=== PATIENT | male | born 1970 | race Caucasian/White ===

== ENCOUNTER 2020-01-19 16:42 | Emergency (ER) | payer MEDICARE, OTHER, SELFPAY ==
[2020-01-19 16:49] VITALS: BP 137/79; PULSE 75; RESP 16; TEMP 36.5; O2SAT 100
[2020-01-19 17:13] VITALS: RESP 16
--- NOTE | 2020-01-19 17:13 | ED.GENADUL_ITS ---
Discharge Plan Disposition Patient Disposition: HOME Condition: Stable Discharge Details Clinical Impression: Abscess of scrotum Primary Care Provider: [facility] [place] [facility] Provider: Woo Shukla Home Meds and New Rx's Prescriptions: New sulfamethoxazole-trimethoprim [Bactrim DS] 800-160 mg tablet 1 tab PO BID Qty: 14 RF: 0 cephalexin 500 mg tablet 500 mg PO QID Qty: 28 RF: 0 Continued divalproex [Depakote] 500 MG tablet,delayed release (DR/EC) 1,000 mg PO HS RF: 0 metoprolol tartrate 50 MG tablet 50 mg PO BID RF: 0 fexofenadine 60 MG tablet 1 tab PO PRN RF: 0 gabapentin 600 MG tablet 600 mg PO DAILY RF: 0 risperidone [Risperdal] 2 MG tablet 6 mg PO DAILY RF: 0 lorazepam 0.5 MG tablet 0.5 mg PO TID PRNRF: 0 Discharge Instructions Instructions: Abscess (ED) Additional Instructions: you should be contacted with an appointment for general surgery sit in a warm bath for 20 minutes 3 times a day for 5 days if you feel more ill, severe worsening pain or fevers return to the emergency department Medical Decision Making 49 yo male with 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 no fevers, dysuria or abdominal pain. He has no testicle tenderness, on posterior left scrotum does have 3cm fluctuance with mild erythema. No crepitus. I recommended I And D with scalpel for likely abscess but he declined. He was willing to have needle aspiration and after prepping the skin with alcohol pad and using an 18g needle I aspirated about 5cmm bloody purulent material which will be sent for culture. Given the mild erythema will start on abx and will have him f/u with general surgery for recheck next week and advised he may need to have I and d at that time. No findings on exam to suggest fourniers or nec fasc. Differential Diagnosis Differential Diagnosis: scrotal cyst, scrotal abscess Medical Records Medical records reviewed: Yes I reviewed the patient's medical records. HPI General Mode of arrival: ambulatory . Date/Time Provider Initiated Documentation: 01/19/20 16:50 . Limitations to Documentation: no limitations . Information obtained by: patient . History of Present Illness 49 year old M presents to the emergency department with the chief complaint of testicle cyst, and it has been constant. No relieving factors improve symptom(s), No exacerbating factors reported . Patient did receive the following treatments prior to arrival, none Related Data Home Medications Medication Instructions Recorded Confirmed divalproex [Depakote] 1,000 mg PO HS 09/16/12 01/19/20 metoprolol tartrate 50 mg PO BID 09/16/12 01/19/20 fexofenadine 1 tab PO PRN 07/17/13 08/11/17 gabapentin 600 mg PO DAILY 05/24/15 01/19/20 lorazepam 0.5 mg PO TID PRN 05/24/15 01/19/20 risperidone [Risperdal] 6 mg PO DAILY 05/24/15 01/19/20 cephalexin 500 mg PO QID #28 tab 01/19/20 sulfamethoxazole-trimethoprim 1 tab PO BID #14 tab 01/19/20 [Bactrim DS] Previous Rx's Medication Instructions Recorded cephalexin 500 mg PO QID #28 tab 01/19/20 sulfamethoxazole-trimethoprim 1 tab PO BID #14 tab 01/19/20 [Bactrim DS] Allergies Allergy/AdvReac Type Severity Reaction Status Date / Time NKDA Allergy Unknown Uncoded 01/19/20 16:52 General Stated Complaint: GenMedical PATSY: 3 Review of Systems All systems reviewed & are unremarkable except as noted in HPI and below Constitutional Constitutional: Denies chills, Denies fever(s) and Denies weakness Cardiovascular Cardiovascular: Denies chest pain and Denies dyspnea Respiratory Respiratory: Denies cough and Denies dyspnea Gastrointestinal Gastrointestinal: Denies abdominal pain, Denies nausea and Denies vomiting Musculoskeletal Musculoskeletal: Denies joint swelling Neurologic Neurologic: Denies weakness [facility] Social History Smoking/Tobacco Use Status: Current-Occasional Tobacco Type: cigars Alcohol Intake: never Drug use: Never Substance use type: does not use Do you feel safe at home: Yes Do you feel safe in your relationship?: Yes Exam Const General: no acute distress Orientation: alert HENMT Head: normal to inspection Ears: external ears normal General nose exam: external nose normal Mouth: moist mucous membranes Eyes General: appearance normal, both eyes and all related structures Neck Neck: normal visual inspection Resp Effort & Inspection: normal respiratory effort and able to speak in complete sentences Cardio Rate: regular rate Meatus: meatus normal Skin General skin exam: no rashes or lesions noted Neuro General: patient alert and patient oriented x3 Extrem General: normal to inspection Psych Mental Status: mental status grossly normal Course Vital Signs Vital signs: Vital Signs Temperature 36.5 C 01/19/20 16:49 Pulse 75 01/19/20 16:49 Respiratory Rate 16 01/19/20 16:49 Blood Pressure 137/79 01/19/20 16:49 Pulse Oximetry 100 01/19/20 16:49 Temperature 36.5 C 01/19/20 16:49 Temperature Source Tympanic 01/19/20 16:49 Pulse 75 01/19/20 16:49 Respiratory Rate 16 01/19/20 16:49 Respiratory Effort Non-Labored 01/19/20 16:51 Blood Pressure 137/79 01/19/20 16:49 Blood Pressure Position Sitting 01/19/20 16:49 Pulse Oximetry 100 01/19/20 16:49 Oxygen Delivery Method Room Air 01/19/20 16:49 Oxygen Flow Rate 0 01/19/20 16:49 Pain Level 8 01/19/20 16:49 Procedures Abscess I/D Site: Scrotum Side (if applicable): Left Local Anesthetic: Other Anesthetic (pt declined local anesthetic) Technique: Needle Aspiration Amount of fluid expressed (mL): 5 Irrigation: No Packing used?: None
[2020-01-19 17:22] VITALS: RESP 15
--- NOTE | 2020-01-19 17:34 | NUR.NOTE ---
Nursing Note: Referral to [facility] faxed for follow up. Ryanne Gonsales
== END 2020-01-19 17:27 | disposition home or self-care (01) ==
LOC: ER 17:30
PROVIDERS: Emergency Provider Emergency Medicine
DX: N49.2 Inflammatory disorders of scrotum (principal); N50.82 Scrotal pain; L98.8 Other specified disorders of the skin and subcutaneous tissue
CPT/HCPCS: 10160; 87070; 87205

== ENCOUNTER → 2021-11-26 01:07 | Outpatient (CLI) | payer MEDICARE, OTHER, SELFPAY ==
--- NOTE | 2021-11-26 | DI.RAD_ITS ---
Exam(s) XR CHEST 2V PA LATERAL EXAM: XR CHEST 2V PA LATERAL CLINICAL HISTORY: SMOKER, WHEEZE ON EXAM, HTN, R06.2 [id number]. TECHNIQUE: 2D digital imaging was performed. COMPARISON: CR RIGHT RIBS TO INCLUDE CXR from 05/24/2015 FINDINGS: 2 views: Heart size is normal. The mediastinum is not widened. Lungs are clear. No infiltrates nor pleural effusions. IMPRESSION: No acute pulmonary findings. DATA REPOSITORY: RADIATION DOSE DELIVERED:
== END ==
PROVIDERS: Visit Provider Internal Medicine
DX: R06.2 Wheezing (principal); I10 Essential (primary) hypertension; E66.9 Obesity, unspecified; F17.200 Nicotine dependence, unspecified, uncomplicated
CPT/HCPCS: 71046

== ENCOUNTER → 2023-09-04 13:54 | Outpatient (CLI) | payer MEDICARE, OTHER, SELFPAY ==
--- NOTE | 2023-09-04 14:13 | DI.RAD_ITS ---
Exam(s) XR SHOULDER LT COMPLETE 2+V EXAM: XR SHOULDER LT COMPLETE 2+V CLINICAL HISTORY: PAIN LT SHOULDER JOINT, M25.512. TECHNIQUE: 2D digital imaging was performed of the left shoulder. Five images were obtained. AP, G rashey, Y-view and axillary views were obtained. COMPARISON: No exams were available for comparison FINDINGS: BONES: No acute fracture is present. No bony destructive lesion is seen. JOINTS: No dislocation present. The acromioclavicular and glenohumeral joints are unremarkable. SOFT TISSUE: Normal. IMPRESSION: Unremarkable radiographs of the left shoulder. DATA REPOSITORY: RADIATION DOSE DELIVERED:
== END ==
PROVIDERS: Visit Provider Physician Assistant Medical
DX: M25.512 Pain in left shoulder (principal)
CPT/HCPCS: 73030

== ENCOUNTER 2023-09-04 21:17 | Emergency (ER) | payer OTHER, SELFPAY ==
--- NOTE | 2023-09-04 21:15 | RT.EKG_ITS ---
APPROVED REPORT Exam: Resting ECG Reason for Exam: chest pain Patient Location: E HR:79 bpm ECG Measurements Heart Rate 79 AXIS CO [id number] P [id number] QRSd 118 QRS -10 QT 383 T -1 QTc 441 Conclusion Atrial fibrillation...V-rate 75- 83, irreg A-activity Nonspecific intraventricular conduction delay...QRSd >115mS, not LBBB/RBBB Physician: no stemi
[2023-09-04 21:19] VITALS: BP 129/63; PULSE 79; RESP 18; TEMP 36.4; O2SAT 99
[2023-09-04 21:24] VITALS: RESP 18
--- NOTE | 2023-09-04 22:30 | DI.RAD_ITS ---
Exam(s) XR CHEST 2V PA LATERAL EXAM: XR CHEST 2V PA LATERAL CLINICAL HISTORY: left back pain. TECHNIQUE: 2D digital imaging was performed. COMPARISON: CR XR CHEST 2V PA LATERAL from 11/26/2021 FINDINGS: 2 views: Heart size is normal. The mediastinum is not widened. Lungs are clear. No infiltrates nor pleural effusions. IMPRESSION: No acute pulmonary findings. DATA REPOSITORY: RADIATION DOSE DELIVERED:
[2023-09-04 22:42] LABS: Abs Immature Grans 0.02 10^3/uL (0.0-0.06); Absolute Basophil Count 0.05 10^3/uL (0.0-0.2); Absolute Eosinophil Count 0.27 10^3/uL (0.0-0.7); Absolute Lymphocyte Count 3.75 10^3/uL (1.2-3.4); Absolute Monocyte Count 0.77 10^3/uL (0.1-0.8); Absolute Neutrophil Count 4.19 10^3/uL (1.2-6.7); Basophils % 0.6; HCT 45.4 % (40.0-50.0); HGB 15.5 g/dL (13.5-17.5); Immature Grans % 0.2; Lymphocytes % 41.4; MCH 31.5 pg (27.0-33.0); MCHC 34.1 % (32.0-36.0); MCV 92 fL (80-95); MPV 11.4 fL (8.0-11.0); Monocytes % 8.5; Neutrophils % 46.3; Platelet Count 232 10^3/uL (130-400); RBC 4.92 10^6/uL (4.36-5.78); RDW 12.6 % (11.8-14.1); RDW-SD 43.5 fL; WBC 9.05 10^3/uL (4.4-10.8)
[2023-09-04 22:57] LABS: ALT 85 U/L (16-63); AST 26 U/L (15-37); Albumin 3.9 g/dL (3.4-5.0); Alkaline Phosphatase 60 U/L (46-116); Anion Gap 4.7 mmol/L (3-11); BUN 9 mg/dL (7-18); Bilirubin, Total 0.5 mg/dL (0.2-1.0); CO2 31.3 mmol/L (21.0-32.0); CREATININE 0.7 mg/dL (0.70-1.30); Chloride 101 mmol/L (98-107); Estimated GFR 111.56 (mL/min/1.73m2); Glucose 90 mg/dL (74-106); Magnesium 2.2 mg/dL (1.8-2.4); Potassium 3.7 mmol/L (3.5-5.1); Sodium 137 mmol/L (136-145); Total Protein 7.4 g/dL (6.4-8.2)
[2023-09-04 22:58] LABS: Troponin I < 50 ng/L (< or =60)
[2023-09-04 23:06] VITALS: BP 180/92
--- NOTE | 2023-09-04 23:07 | ED.GENADUL_ITS ---
Discharge Plan Disposition Patient Disposition: Home Condition: Stable Discharge Details Clinical Impression: Cervical radiculopathy at C8 Primary Care Provider: [facility] ED Provider: Janelle Olivia Home Meds and New Rx's Prescriptions: New prednisone 20 mg tablet 40 mg PO ONCE Qty: 10 0RF Continued divalproex [Depakote] 500 MG tablet,delayed release (DR/EC) 1,000 mg PO HS metoprolol tartrate 50 MG tablet 50 mg PO BID gabapentin 600 MG tablet 600 mg PO DAILY Patient Comments: nightly lorazepam 0.5 MG tablet 0.5 mg PO TID PRN Patient Comments: up to 3 times a day quetiapine 400 mg tablet 400 mg PO HS Discharge Instructions Additional Instructions: Take the prednisone as prescribed Refrain from lifting greater than 5 pounds Take Tylenol as needed for discomfort Return earlier should you have new or worsening complaints including worsening weakness, fever, chills, pain Recommend recheck with your primary care physician in 1 week Discharge Data Discharge Date/Time-TO BE ENTERED AT DEPARTURE: 09/04/23 23:23 HPI General Date/Time Provider Initiated Documentation: 09/04/23 21:42 . HPI Narrative: This 52-year-old male presents with left shoulder and arm pain for the past week and a half. Denies any fever or chills. Denies any known trauma. States he is concerned because sometimes the pain radiates into his left chest. Denies any history of illicit drug use. Does state he has paresthesias in his left fifth digit pain radiates around shoulder blade behind his arm. Worse when he lifts both hands over his head. Denies weakness. Related Data Home Medications Medication Instructions Recorded Confirmed divalproex 500 mg tablet,delayed 1,000 mg PO HS 09/16/12 09/04/23 release (Depakote) metoprolol tartrate 50 mg tablet 50 mg PO BID 09/16/12 09/04/23 gabapentin 600 mg tablet 600 mg PO DAILY 05/24/15 09/04/23 lorazepam 0.5 mg tablet 0.5 mg PO TID PRN 05/24/15 09/04/23 prednisone 20 mg tablet 40 mg (2 x 20 mg) PO ONCE #10 tabs 09/04/23 quetiapine 400 mg tablet 400 mg PO HS 09/04/23 09/04/23 Previous Rx's Medication Instructions Recorded prednisone 20 mg tablet 40 mg (2 x 20 mg) PO ONCE #10 tabs 09/04/23 Allergies Allergy/AdvReac Type Severity Reaction Status Date / Time NKDA Allergy Unknown Other (See Uncoded 09/04/23 21:22 Comment) General Stated Complaint: Chest Pain PATSY: 3 Exam Narrative Exam Narrative: Alert, oriented x 4, pupils equal round reactive to light and accommodation, reproducible left-sided chest wall pain, no tenderness to cervical spine, thoracic spine with paraspinal tenderness, lungs clear to auscultation bilaterally, cardiac rate rhythm regular, no rashes or lesions, strength and sensation intact to all 4 extremities DTRs intact in bilateral upper and lower extremities hand grasp intact and equal bilaterally Course Vital Signs Vital signs: Vital Signs Temperature 36.4 C L 09/04/23 21:19 Pulse 79 09/04/23 21:19 Respiratory Rate 18 09/04/23 21:19 Blood Pressure 129/63 09/04/23 21:19 Pulse Oximetry 99 09/04/23 21:19 Temperature 36.4 C L 09/04/23 21:19 Pulse 79 09/04/23 21:19 Respiratory Rate 18 09/04/23 21:24 Respiratory Effort Normal, Non-Labored 09/04/23 21:24 Respiratory Depth Normal 09/04/23 21:24 Respiratory Pattern Normal 09/04/23 21:24 Blood Pressure 129/63 09/04/23 21:19 Pulse Oximetry 99 09/04/23 21:19 Lab/Test Results Lab/Test Results: Laboratory Tests Range/Units 09/04/23 22:00 WBC (4.4-10.8) 10^3/uL 9.05 RBC (4.36-5.78) 10^6/uL 4.92 Hgb (13.5-17.5) g/dL 15.5 Hct (40.0-50.0) % 45.4 MCV (80-95) fL 92 MCH (27.0-33.0) pg 31.5 MCHC (32.0-36.0) % 34.1 RDW (11.8-14.1) % 12.6 Plt Count (130-400) 10^3/uL 232 MPV (8.0-11.0) fL 11.4 H Immature Gran % 0.2 Neutrophils % 46.3 Lymphocytes % 41.4 Monocytes % 8.5 Eosinophils % 3.0 Basophils % 0.6 Nucleated RBC % (0.0-0.3) % 0.0 Absolute Neutrophils (1.2-6.7) 10^3/uL 4.19 Absolute Lymphocytes (1.2-3.4) 10^3/uL 3.75 H Absolute Monocytes (0.1-0.8) 10^3/uL 0.77 Absolute Eosinophils (0.0-0.7) 10^3/uL 0.27 Absolute Basophils (0.0-0.2) 10^3/uL 0.05 Sodium (136-145) mmol/L 137 Potassium (3.5-5.1) mmol/L 3.7 Chloride (98-107) mmol/L 101 Carbon Dioxide (21.0-32.0) mmol/L 31.3 Anion Gap (3-11) mmol/L 4.7 BUN (7-18) mg/dL 9 Creatinine (0.70-1.30) mg/dL 0.7 Est GFR (CKD-EPI 2020) (mL/min/1.73m2) 111.56 Glucose (74-106) mg/dL 90 Calcium (8.5-10.1) mg/dL 9.0 Magnesium (1.8-2.4) mg/dL 2.2 Total Bilirubin (0.2-1.0) mg/dL 0.5 AST (15-37) U/L 26 ALT (16-63) U/L 85 H Alkaline Phosphatase (46-116) U/L 60 Troponin I (< or =60) ng/L < 50 Total Protein (6.4-8.2) g/dL 7.4 Albumin (3.4-5.0) g/dL 3.9 Medical Decision Making This 52-year-old male presents with report of left-sided chest pain and radicular pain from scapula to left arm. Given patient's age and comorbidities will order 2 troponins and cardiac assessment. Patient has had symptoms for the past several days intermittently so I think a single troponin is reasonable. Chest x-ray within normal limits, reviewed left shoulder x-ray from earlier evaluation per radiology interpretation and my review. Neurovascularly intact to all 4 extremities and overall benign exam, low suspicion for cardiac etiology of patient's complaints, I suspect patient has a C8 or C7 disc herniation and will place on prednisone for radiculopathy. Will refer back to primary care physician, stable for discharge home at time of reassessment, return precautions reviewed and patient expressed understanding. I did review patient's information from earlier visit at urgent care requiring approximately 5 minutes. EKG per my review and attending's documentation does not show evidence of acute ischemia or injury. No obvious dysrhythmia noted. Reproducible chest pain on exam reassuring. Quality:SDOH Health Related Social Needs: No Data to Display [facility] All Active Problems (Updated 09/04/23 @ 23:08 by SHANTI Tinajero) Cervical radiculopathy at C8 (Acute) Social History Smoking/Tobacco Use Status: Current-Occasional Tobacco Type: cigarettes Smoking risk assessment performed?: Yes Alcohol Intake: never Drug use: Never Substance use type: does not use Do you feel safe at home: Yes Do you feel safe in your relationship?: Yes
--- NOTE | 2023-09-04 23:13 | DI.VRAD_ITS ---
PROCEDURE INFORMATION: Exam: XR Chest Exam date and time: 09/04/2023 10:45 PM Age: 52 years old Clinical indication: Left-sided and other: Left back pain TECHNIQUE: Imaging protocol: Radiologic exam of the chest. Views: 2 views. COMPARISON: CR XR CHEST 2V PA LATERAL 11/26/2021 1:23 PM FINDINGS: Lungs: Lungs are adequately inflated. No focal consolidation or evidence of pulmonary edema. Pleural spaces: No pleural effusion. No pneumothorax. Heart/Mediastinum: Cardiomediastinal contours within normal limits. Diaphragm: Mild asymmetric elevation of the right hemidiaphragm. Bones/joints: Mild thoracic spondylosis. No acute osseous finding. IMPRESSION: No acute findings. Dictated and Authenticated by: Vinay Kimball MD. Ordering:NIEVES Luis MD
[2023-09-04] MEDS: predniSONE 20 MG TAB 40 MG PO (23:14)
[2023-09-04 23:23] VITALS: TEMP 36.6
== END 2023-09-04 23:23 | disposition home or self-care (01) ==
PROVIDERS: Emergency Provider Physician Assistant
DX: I48.91 Unspecified atrial fibrillation (principal); M54.12 Radiculopathy, cervical region; F17.210 Nicotine dependence, cigarettes, uncomplicated
CPT/HCPCS: 36415; 80053; 93005; 99285; 71046; 83735; 84484; 85025; 93010; 99284; J7512

== ENCOUNTER → 2023-09-17 00:42 | Outpatient (CLI) | payer OTHER, SELFPAY ==
--- NOTE | 2023-09-17 | DI.RAD_ITS ---
Exam(s) XR CERVICAL SPINE COMP 4-5V EXAM: XR CERVICAL SPINE COMP 4-5V CLINICAL HISTORY: [id number] Cervical disc disorder at C5-C6 level w/radiculpathy. TECHNIQUE: 2D digital imaging was performed. Five views were performed. COMPARISON: No exams were available for comparison FINDINGS: BONES: No fracture or destructive lesion. Vertebral bodies are unremarkable. DISKS: Mild narrowing of the C5-6 disc space. Endplate osteophytes at this level, causing bilateral neural foraminal encroachment. The remaining intervertebral disc spaces are maintained. ALIGNMENT: Cervical spinal alignment is within normal limits. The odontoid and atlantoaxial articulat ions are normal. SOFT TISSUE: Normal. The lung apices are clear. IMPRESSION: Degenerative disc changes at C 5 6 cause bilateral neural foraminal encroachment. DATA REPOSITORY: RADIATION DOSE DELIVERED:
== END ==
PROVIDERS: Visit Provider Physician Assistant
DX: M50.122 Cervical disc disorder at C5-C6 level with radiculopathy (principal)
CPT/HCPCS: 72050